=== PATIENT | male | born 1950 | race Caucasian/White ===

== ENCOUNTER 2023-11-06 09:25 | Day surgery (SDC) | payer OTHER, MEDICARE ==
[~2023-11-06] VITALS: Ht 188 cm; Wt 83.9 kg
[2023-11-06] MEDS ORDERED: ACETAMINOPHEN I.V. 1000 MG 100 ML IV ONE (12:16)
[2023-11-06] MEDS ORDERED: ONDANSETRON HCL 4 MG/2 ML VIAL IVP PRN (12:30)
[2023-11-06] MEDS ORDERED: MEPERIDINE HCL/PF 25 MG/ML DISP.SYRIN IVP PRN (12:30)
[2023-11-06] MEDS ORDERED: LR 1,000 ML IV SCH (12:30)
[2023-11-06] MEDS ORDERED: LABETALOL 100 MG/ 20ML VIAL IVP PRN (12:30)
[2023-11-06] MEDS ORDERED: hydrALAZINE HCL 20 MG/ML VIAL IVP PRN (12:30)
[2023-11-06] MEDS ORDERED: HYDROmorphone 1 MG/ML INJ. CARTRIDGE IVP PRN ×2 (12:30)
[2023-11-06 12:35] VITALS: O2SAT 100
[2023-11-06] MEDS ORDERED: EPINEPHRINE HCL/PF 1 MG/ML AMP ONE (14:32)
[2023-11-06] MEDS ORDERED: DEXAMETHASONE SOD PHOSPHATE 4 MG/ML VIAL ONE (14:32)
[2023-11-06] MEDS ORDERED: fentaNYL CITRATE/PF 100 MCG/2 ML AMP ONE (14:32)
[2023-11-06] MEDS ORDERED: DESFLURANE 15 MIN GAS INH ONE (14:32)
[2023-11-06] MEDS ORDERED: NS IRRIG SOLN 1000 ML IR ONE (14:32)
[2023-11-06] MEDS ORDERED: PROPOFOL 200MG/ 20ML VIAL (DIPRIVAN) IV ONE (14:32)
[2023-11-06] MEDS ORDERED: BACITRACIN 1 GM OINT TP ONE (14:32)
[2023-11-06] MEDS ORDERED: LR 1,000 ML IV.SOLN IV ONE (14:32)
[2023-11-06] MEDS ORDERED: MIDAZOLAM HCL 5 MG/ML VIAL (VERSED) IV ONE (14:32)
[2023-11-06] MEDS ORDERED: METOCLOPRAMIDE HCL 10 MG/2 ML VIAL ONE (14:32)
[2023-11-06] MEDS ORDERED: LIDOCAINE/EPI 1% 1:100000 20 ML VIAL ONE (14:32)
[2023-11-06] MEDS ORDERED: ROCURONIUM BROMIDE 10 MG/ML (ZEMURON) ONE (14:32)
[2023-11-06] MEDS ORDERED: WATER FOR IRRIGATION,STERILE 1,000 ML IRRIG.SOLN IR ONE (14:32)
[2023-11-06] MEDS ORDERED: ONDANSETRON HCL 4 MG/2 ML VIAL ONE (14:32)
[2023-11-06 16:49] VITALS: BP_SYST 148; PULSE 66; RESP 20
== END 2023-11-06 16:40 | disposition home or self-care (01) ==
LOC: SDS 09:25 → SMU 09:27 → SDS 16:40
PROVIDERS: ATTEND Otolaryngology
DX: D38.5 Neoplasm of uncertain behavior of other respiratory organs (principal); J34.89 Other specified disorders of nose and nasal sinuses; J34.2 Deviated nasal septum; J32.4 Chronic pansinusitis; J30.1 Allergic rhinitis due to pollen; I48.91 Unspecified atrial fibrillation; M19.90 Unspecified osteoarthritis, unspecified site; Z88.5 Allergy status to narcotic agent; Z79.82 Long term (current) use of aspirin; Z79.899 Other long term (current) drug therapy; Z98.890 Other specified postprocedural states; Z85.820 Personal history of malignant melanoma of skin
CPT/HCPCS: 31296; 30520; 30140; 31256; 31255; 88305; 88311; J1100; J0171; J2765; J2250; J2405; J2704; J3010; J7120; C1726; J0131